=== PATIENT | male | born 1980 | race Caucasian/White ===

== ENCOUNTER → 2016-09-22 | Outpatient (CLI) | payer OTHER | LOC: BMCIMAGING 09:32 | PROVIDERS: ATTEND Family Medicine | DX: M25.561 Pain in right knee (principal) ==

== ENCOUNTER 2018-09-14 05:48 | Day surgery (SDC) | payer BC | END 2018-09-14 10:06 | disposition home or self-care (01) | LOC: FSGY 05:48 ==